=== PATIENT | male | born 1950 | race Caucasian/White ===

== ENCOUNTER 2019-07-03 09:55 | Outpatient (CLI) | payer MEDICARE, OTHER ==
[2019-07-03 13:00] VITALS: BP 132/86
--- NOTE | 2019-07-03 13:00 | SLEEP CARE CONSULTATION ---
Information from patient questionnaire entered by Alissa Walker. I have reviewed and concur with the information entered by Alissa Walker. This document represents the service I personally performed and the decisions made by me, Viktoria Purvis MD, [facility]. History of Present Illness Reason for Visit: Previously diagnosed sleep apnea (AHI 14), sleep apnea on CPAP therapy, Re-establish care Chief Complaint: reports: Observed pauses in breathing, Other (update CPAP machine) Duration of Symptoms: over 11 years Usual bedtime: 2300 Time it takes to fall asleep: 10 minutes Snores at night: Yes (without CPAP) Observed to quit breathing while asleep: Yes Sleeps alone due to snoring: No Number of times waking at night: 4-6 Reasons for waking at night: reports: Bathroom Toss, Turn, or Twitch while sleeping: No Recalls having dreams: Yes Usually gets out of bed at: 0800 Feels refreshed in the morning: Yes Morning headache: No Sleepy or fatigued during the day: Yes (sometimes) Ever fallen asleep while driving: No Takes day naps: Yes Dreams during day naps: No Prior sleep studies: Yes Year and Where: about 2007 [place], [place] Additional HPI information: I had the pleasure of seeing Mr. Beckwith today regarding obstructive sleep apnea. As you know, he is a 70 year old gentleman who was diagnosed in June 2009 in [place], [place] to have moderate obstructive sleep apnea (AHI was 14 and torri oxygen saturation of 84%). CPAP titration showed pressure of 8 cmH2O to be optimal. He was prescribed with an S8 CPAP. He has been using it every night and all night. No snore through the CPAP according to his . Generally he does feel better on the CPAP. He wakes up less frequently at night and less sleepy during the day. His CPAP is now 10 years old. He has been buying supplies online after he went on Medicare 5 years ago. He wears a nasal mask. Subjective Initial [place] Sleepiness Scale score: 11 Past Medical History Past Medical History: reports: Hypothyroidism, Other (s/p tonsillectomy) Social History The patient's occupation is RETIRED. Patient is and lives in [place]. Have you smoked in the past 12 months: No Alcohol use: No Caffeine use: No Family History Family history of sleep disordered breathing: No Allergies and Home Medications Drug allergies reviewed: Yes Home medication list reviewed: Yes Review of Systems Cardiovascular: denies: high blood pressure, palpitations, chest pain, irregular heart rate or pulse, leg or foot swelling, have to sleep sitting up, other Respiratory: denies: shortness of breath, wheeze, sputum production, chronic cough, other Gastrointestinal: denies: heartburn, difficulty swallowing, nausea, vomitting, diarrhea, abdominal pain, other Urinary: reports: frequency, urgency Neurological: denies: headaches, seizure, head trauma, disorientation, speech dysfunction, gait or balance problems, fainting or unconsciousness, other Psychiatric: denies: Attention Deficit Hyperactivity, anxiety, depression, mood disorder, claustrophobia, other Ear/Nose/Throat: reports: nasal congestion, tonsillectomy, wisdom teeth removed Endocrine: reports: thyroid disease, sluggishness, increased urination Musculoskeletal: denies: joint pain, neck pain, back pain, joint swelling, mu scle pain or cramping, mobility problems, other Immunologic: reports: allergies to food or environment Physical Exam Vital signs obtained and entered by: Dr. Purvis Blood Pressure: 132/86 Cuff size: regular Heart Rate: 66 O2 Saturation: 97 Height: 5 ft 10 in Weight: 194 lb Body Mass Index: 27.8 BMI Classification: Overweight Neck circumference: 16 Mood/affect: normal HEENT: No craniofacial malformation Nostrils: patent to airflow Turbinates: normal Septum: midline Mouth and throat: narrow oropharynx Soft palate: long Hard palate: normal Uvula: normal Uvula visualization: 100% Mallampati Class I Tongue: normal in size Tonsils: absent bilaterally Chin and jaw: normal size and position Neck: normal w/o lymphadenopathy or thyromegaly Heart: regular rate and rhythm Lungs: clear bilaterally Abdomen: soft, non-tender Extremities: no edema or clubbing Neurologic: intact, no focal deficits Impression and Plan IMPRESSION: 1. Obstructive Sleep Apnea-Hypopnea Syndrome, as previously diagnosed. According to him, the patient has good treatment compliance and significant improvement on the treatment. The compliance data from his ResMed S8 is not obtainable because the buttons are broken and it does not have a memory card. Because the CPAP is now much older than the useful life of 5 years, I will order the patient a new one and make it an autoCPAP set between 6 and 10 cmH2O. Plan: 1. Prescription made for an autoCPAP, heated humidifier, and related supplies. 2. Try Respironics DreamWear nasal cushion mask and ResMed N30i mask. 3. Return for follow up after one month on the new machine. I spent 100% of this 20 minute visit face to face with the patient with greater than 50% of this was spent time counseling the patient and coordination of care.
== END 2019-07-03 09:56 | disposition home or self-care (01) ==
LOC: SC 09:55
PROVIDERS: ATTEND Internal Medicine Pulmonary Disease
DX: G47.33 Obstructive sleep apnea (adult) (pediatric) (principal)
CPT/HCPCS: 99203; G0463; 99212

== ENCOUNTER 2019-11-20 11:18 | Outpatient (CLI) | payer MEDICARE, OTHER ==
--- NOTE | 2019-11-20 13:22 | SLEEP CARE CONSULTATION ---
Information from patient questionnaire entered by Yenni Umanzor. I have reviewed and concur with the information entered by Yenni Umanzor. This document represents the service I personally performed and the decisions made by me, Viktoria Purvis MD, [facility]. History of Present Illness Previous diagnosis: Mild, Obstructive Sleep Apnea-Hypopnea Syndrome AHI: 14 Reason for follow up: first compliance after device update Equipment type: CPAP Equipment obtained from: [employer] (in [place]) Mask style: Nasal HPI additional information: HPI: Mr. Ricketts was diagnosed to have moderate obstructive sleep apnea-hypopnea syndrome and returns today for annual follow up of CPAP therapy. The patient recently acquired a new autoCPAP device from [employer] and was fitted with a nasal mask. He continues to use the device nightly and all through the night. The compliance report shows that he uses the device 30 nights out of the past 30 nights, averaging 8.2 hours a night. The > 4 hour compliance rate for the past 30 days is 100%. He complains of no particular problem with the device such as soreness on the face, dry nose, epistaxis, nasal congestion or headache. He thinks that the pressure of 6 - 10 cmH2O is comfortable. On the CPAP therapy he notices improvement in his sleep quality, and that he wakes up feeling fresher in the morning and more awake/alert during the day. [place] Sleepiness Scale score is 10. His notices no snore at all. The average residual AHI is 3.4; and average time in large leak per day is 2 minutes. The 90th percentile pressure is 8.6 cmH2O. CPAP Compliance Data - Data Reviewed with Patient Average duration of nightly device use: 8.2 Compliance rate %: 100 Current pressure setting (cmH2O): 6-10 Humidity settin Heated hose settin Average residual AHI: 3.4 Average large leak: 2 min 16 sec Subjective Initial [place] Sleepiness Scale score: 11 Current [place] Sleepiness Scale score: 10 Allergies and Home Medications Drug allergies reviewed: Yes Home medication list reviewed: Yes Review of Systems Review of systems same as previous: Yes Physical Exam Vital signs obtained and entered by: Physical exam deferred due to the COVID-19 epidemic Height: 5 ft 10 in Impression and Plan IMPRESSION: 1. Obstructive Sleep Apnea-Hypopnea Syndrome, moderate, with the patient continuing to do well on nasal CPAP therapy. He has excellent compliance and significant clinical benefits. The current pressure appears effective and comfortable. Overall, he is very satisfied with treatment and plans to continue with it long-term. No adjustment is necessary today. PLAN: 1. Continue with autoCPAP set at 6 - 10 cm H2O. 2. Try other masks and nasal pillows. List given. 3. Return in one year for follow up or earlier if there is any problem with the treatment. I spent 100% of this visit face to face with the patient with greater than 50% of this was spent time counseling the patient and coordination of care.
== END 2019-11-20 11:19 | disposition home or self-care (01) ==
LOC: SC 11:18
PROVIDERS: ATTEND Internal Medicine Pulmonary Disease
DX: G47.33 Obstructive sleep apnea (adult) (pediatric) (principal)
CPT/HCPCS: 99213; G0463; 99212

== ENCOUNTER 2021-07-27 10:46 | Outpatient (CLI) | payer MEDICARE, OTHER ==
[2021-07-27 11:25] VITALS: BP 130/91
--- NOTE | 2021-07-27 11:25 | SLEEP CARE CONSULTATION ---
Information from patient questionnaire entered by Oma Palumbo MA. I have reviewed and concur with the information entered by Oma Palumbo MA. This document represents the service I personally performed and the decisions made by me, Viktoria Purvis MD, [facility]. History of Present Illness Service Date and Time: 07/27/2021 1046 Previous diagnosis: Mild, Obstructive Sleep Apnea-Hypopnea Syndrome AHI: 14 Equipment type: CPAP Mask style: Nasal Prior sleep studies: Yes Year and Where: about 2007 [facility] additional information: Mr. Ricketts was diagnosed to have moderate obstructive sleep apnea-hypopnea syndrome and returns today for annual follow up of CPAP therapy. The patient recently gets his supplies from [employer]. He wears a Respironics Comfort Gel nasal mask. He continues to use the device nightly and all through the night. The compliance report shows that he uses the device 180 nights out of the past 180 nights, averaging 8.3 hours a night. The > 4 hour compliance rate for the past 180 days is 100%. He complains of cough but no particular problem with the device such as soreness on the face, dry nose, epistaxis, nasal congestion or headache. He has had the dry cough for a few years. He thinks that the pressure of 6 - 10 cmH2O is comfortable. On the CPAP therapy he notices i mprovement in his sleep quality, and that he wakes up feeling fresher in the morning and more awake/alert during the day. [facility] Sleepiness Scale score is 8. The average residual AHI is 3.5; and average time in large leak per day is 0 minutes. The 90th percentile pressure is 9.4 cmH2O. He is aware of the [employer] Respironics recall and registered his device online several months ago. Sleep Study - Results Prior sleep studies: Yes Year and Where: about 2007 [place], [place] CPAP Compliance Data - Data Reviewed with Patient Average duration of nightly device use: 8 hours 16 minutes Compliance rate %: 100 Current pressure setting (cmH2O): 6 - 10 Humidity setting: off Heated hose setting: off Average residual AHI: 3.5 Average large leak: 0 Subjective Initial [facility] Sleepiness Scale score: 11 Allergies and Home Medications Drug allergies reviewed: Yes Home medication list reviewed: Yes Review of Systems Review of systems same as previous: Yes Physical Exam Vital signs obtained and entered by: RAJENDRA AMEZCUA Blood Pressure: 130/91 (left) Cuff size: wrist Heart Rate: 82 O2 Saturation: 97 (with mask) Height: 5 ft 10 in Weight: 199 lb (with boots) Body Mass Index: 28.5 BMI Classification: Overweight Impression and Plan IMPRESSION: 1. Obstructive Sleep Apnea-Hypopnea Syndrome, moderate, with the patient continuing to do well on nasal CPAP therapy. He has excellent compliance and significant clinical benefits. The current pressure appears effective and comfortable. Overall, he is very satisfied with treatment and plans to continue with it long-term. No adjustment is necessary today. His chronic cough does not appear to be related to the device recall. I recommend he increase the heated humidifier. He may want to add a bacterial filter to the air circuit. PLAN: 1. Continue with autoCPAP set at 6 - 10 cm H2O. 2. Try ResMed N20 Air Touch nasal mask. 3. Return for a follow up after he receives the replacement device from [employer]. Follow up with Sleep Care in: 3 months Follow up recommended for: Weight management Visit Type: In Office Time Spent with Patient (minutes): 20 Provider Statement: I spent 100% of the Face to Face Visit with the patient with greater than 50% spent counseling the patient and coordination of care.
== END 2021-07-27 10:47 | disposition home or self-care (01) ==
LOC: SC 10:46
PROVIDERS: ATTEND Internal Medicine Pulmonary Disease
DX: G47.33 Obstructive sleep apnea (adult) (pediatric) (principal)
CPT/HCPCS: 99213; G0463; 99212

== ENCOUNTER 2021-11-18 11:34 | Day surgery (SDC) | payer MEDICARE, OTHER ==
[2021-11-18] MEDS ORDERED: LACTATED RINGERS 1,000 ML IV ONE ×2 (11:37→13:14)
--- NOTE | 2021-11-18 11:53 | ANESTHESIA ---
Pre-Anesthesia VS, & Labs - Diagnosis screening, GERD - Procedure colonoscopy, EGD Height: 5 ft 10 in - NPO >8 hours Home Medications and Allergies Levothyroxine [Synthroid] 100 mcg PO DAILY 10/23/15 Tamsulosin [Flomax] 0.4 mg PO DAILY 10/23/15 Allergies/Adverse Reactions: Allergies Allergy/AdvReac Type Severity Reaction Status Date / Time No Known Drug Allergies Allergy Verified 10/23/15 13:38 Anes History & Medical History - Anesthetic History Anesthesia Complications: reports: No previous complications Family history of Anesthesia Complications: Denies Family history of Malignant Hyperthermia: Denies - Medical History Cardiovascular: reports: None Pulmonary: reports: Sleep apnea, CPAP use Gastrointestinal: reports: None Urinary: reports: Benign prostate hypertrophy, Frequency Musculoskeletal: reports: None Endocrine/Autoimmune: reports: HyPOthyroidism Skin: reports: None - Surgical History General: reports: Colonoscopy Exam General: Alert, Oriented x3, Cooperative Dental: WNL Mouth Openin Fingerbreadth Neck Mobility: Normal Mallampati classification: I Thyromental Distance: 4-6 cm Respiratory: Lungs clear Cardiovascular: Regular rate Plan Anesthesia Type: Total IV Consent for Procedure(s) Verified and Reviewed: Yes Code Status: Attempt Resuscitation ASA classification: 2-Mild systemic disease Is this case an emergency?: No
[2021-11-18] MEDS ORDERED: PROPOFOL 500 MG/50 ML 500 MG/50 ML VIAL ONE (12:14)
[2021-11-18 13:33] VITALS: BP 118/81
--- NOTE | 2021-11-18 15:13 | ANESTHESIA POST OP EVALUATION ---
Anesthesia Post Eval - Post Anesthesia Eval Vitals: Last Vital Signs Temp 36.2 C L 11/18/21 13:30 Pulse 70 11/18/21 13:30 Resp 16 11/18/21 13:30 BP 118/81 H 11/18/21 13:30 Pulse Ox 97 11/18/21 13:30 CV Function Including HR & BP: Stable Pain Control: Satisfactory Nausea & Vomiting: Negative Mental Status: Baseline Respiratory Status: Airway Patent Hydration Status: Satisfactory Anesthesia Complications: None
== END 2021-11-18 11:35 | disposition home or self-care (01) ==
LOC: SDS 11:34
PROVIDERS: ATTEND Surgery
PROC: 0DBL8ZZ Excision of Transverse Colon, Via Natural or Artificial Opening Endoscopic (ICD-10-PCS; 2021-11-18)
PROC: 0DB48ZX Excision of Esophagogastric Junction, Via Natural or Artificial Opening Endoscopic, Diagnostic (ICD-10-PCS; 2021-11-18)
PROC: 0DB78ZX Excision of Stomach, Pylorus, Via Natural or Artificial Opening Endoscopic, Diagnostic (ICD-10-PCS; 2021-11-18)
PROC: 0DBP8ZX Excision of Rectum, Via Natural or Artificial Opening Endoscopic, Diagnostic (ICD-10-PCS; principal; 2021-11-18 12:45)
PROC: 0DBE8ZX Excision of Large Intestine, Via Natural or Artificial Opening Endoscopic, Diagnostic (ICD-10-PCS; 2021-11-18 12:45)
DX: Z12.11 Encounter for screening for malignant neoplasm of colon (principal); K21.9 Gastro-esophageal reflux disease without esophagitis; K62.89 Other specified diseases of anus and rectum; D12.3 Benign neoplasm of transverse colon; K64.8 Other hemorrhoids; K29.50 Unspecified chronic gastritis without bleeding; K44.9 Diaphragmatic hernia without obstruction or gangrene; G47.30 Sleep apnea, unspecified
CPT/HCPCS: 43239; 45380; J7120